=== PATIENT | male | born 1990 | race Hispanic/Latino ===

== ENCOUNTER 2021-03-18 08:34 | Emergency (ER) | payer OTHER ==
[~2021-03-18] VITALS: Ht 167.6 cm; Wt 77.1 kg
[2021-03-18 08:35] VITALS: BP 110/71
[2021-03-18] MEDS ORDERED: HYDROCODONE/ACETAMINOPHEN 5/325 MG TAB PO SCH (10:45)
[2021-03-18] MEDS ORDERED: IBUP-2077 PO (11:25)
[2021-03-18] MEDS ORDERED: ACET1TAB25 PO ×2 (11:25→11:28)
[2021-03-18 11:36] VITALS: BP 131/75
== END 2021-03-18 11:38 | disposition home or self-care (01) ==
LOC: EDH 08:34
DX: S00.83XA Contusion of other part of head, initial encounter (principal); W21.11XA Struck by baseball bat, initial encounter; Y93.89 Activity, other specified; Y92.89 Other specified places as the place of occurrence of the external cause; Y99.8 Other external cause status
CPT/HCPCS: 70486

== ENCOUNTER 2021-09-14 10:13 | Emergency (ER) | payer SELFPAY ==
[~2021-09-14] VITALS: Ht 167.6 cm; Wt 81.6 kg
[~2021-09-14 10:13] MED LIST: ACET1TAB25 PO; IBUP-2077 PO
[2021-09-14] MEDS ORDERED: ACET1TAB25 PO (11:08)
[2021-09-14 11:30] VITALS: BP 132/74
== END 2021-09-14 11:42 | disposition home or self-care (01) ==
LOC: EDH 10:13
DX: S92.352A Displaced fracture of fifth metatarsal bone, left foot, initial encounter for closed fracture (principal); Z79.1 Long term (current) use of non-steroidal anti-inflammatories (NSAID); X58.XXXA Exposure to other specified factors, initial encounter; Y93.89 Activity, other specified; Y92.89 Other specified places as the place of occurrence of the external cause; Y99.8 Other external cause status
CPT/HCPCS: 73630